=== PATIENT | male | born 1980 | race Caucasian/White ===

== ENCOUNTER 2016-10-14 17:34 | Emergency (ER) | payer BC ==
[~2016-10-14] VITALS: Ht 167.6 cm; Wt 121.8 kg
[~2016-10-14 17:34] MED LIST: MOBIC 7.5MG7.5 MG PO; NORCO 325 MG-51 TAB PO; ZESTRIL 5MG5 MG PO
[2016-10-14 17:36] VITALS: TEMP 98.7
[2016-10-14 18:20] LABS: BASO # 0.1 (0.0-0.2); BASO % 1.1 % (0.0-2.0); EOS # 0.1 (0.0-0.7); EOS % 1.2 % (0-4.0); GRAN # 6.6 (1.4-6.5); GRAN % 67.8 % (42.2-75.2); HEMOGLOBIN 14.8 g/dl (13.5-18.0); LYMPH # 2.1 (1.2-3.4); LYMPH % 21.7 % (20.0-51.0); MEAN CELL VOLUME 86 fl (80.0-100.0); MEAN CORPUSCULAR HEMOGLOBIN 30 pg (27.0-31.0); MEAN CORPUSCULAR HGB CONC 35 g/dl (33.0-37.0); MEAN PLATELET VOLUME 9.2 fl (7.4-10.4); MONO # 0.7 (0.1-0.6); MONO % 7.5 % (1.7-9.3); PLATELET COUNT 402 K/mm3 (130-400); RED BLOOD COUNT 4.87 M/mm3 (4.20-5.60); REDCELL DISTRIBUTION WIDTH-CV 12.2 % (11.5-14.5); WHITE BLOOD COUNT 9.8 K/mm3 (4.8-10.8)
[2016-10-14 18:23] LABS: PH 5 (5-8); SQUAMOUS EPITHELIAL None Seen /hpf; URINE APPEARANCE Clear; URINE BACTERIA None Seen /hpf; URINE BILIRUBIN Negative (NEGATIVE); URINE BLOOD 1+ (NEGATIVE); URINE COLOR Yellow; URINE GLUCOSE Negative (NEGATIVE); URINE KETONE Negative (NEGATIVE); URINE UROBILINOGEN Negative (NEGATIVE); URINE WBC 0-2 /hpf
[2016-10-14 18:30] LABS: ADJUSTED CALCIUM 9.1 mg/dL (8.4-10.2); ALBUMIN 4.5 gm/dL (3.5-5.0); BILIRUBIN,TOTAL 0.5 mg/dL (0.0-1.0); CALCIUM 9.5 mg/dL (8.4-10.2); CREATININE, serum 0.89 mg/dL (0.66-1.25); POTASSIUM 4.1 mmol/L (3.4-5.0); TOTAL PROTEIN 8.1 gm/dL (6.4-8.2)
[2016-10-14] MEDS ORDERED: CIPRO 500MG TA500 MG PO (19:38)
[2016-10-14] MEDS ORDERED: FLAGYL500 MG PO (19:38)
[2016-10-14] MEDS ORDERED: NORCO 325 MG-51 TAB PO (19:38)
[2016-10-14 19:47] VITALS: BP 157/99; PULSE 76
== END 2016-10-14 19:57 | disposition home or self-care (01) ==
LOC: COL.ER 17:34
PROVIDERS: Emergency Medicine
DX: K52.9 Noninfective gastroenteritis and colitis, unspecified (principal); I10 Essential (primary) hypertension
CPT/HCPCS: J2765; J3010; J7030; Q9967

== ENCOUNTER 2018-04-19 15:13 | Inpatient (IN) | payer BC ==
[2018-04-19] VITALS (12 sets, daily range): O2SAT 98–99
[~2018-04-19] VITALS: Ht 167.6 cm; Wt 111.6 kg
[~2018-04-19 15:13] MED LIST changes: +CIPRO 500MG TA500 MG PO; +FLAGYL500 MG PO
[2018-04-19 16:23] LABS: BASO # 0.1 (0.0-0.2); BASO % 1.3 % (0.0-2.0); EOS % 0.3 % (0-4.0); GRAN # 8.9 (1.4-6.5); GRAN % 81.7 % (42.2-75.2); HEMATOCRIT 44.1 % (42.0-52.0); HEMOGLOBIN 15.5 g/dl (13.5-18.0); LYMPH # 1.3 (1.2-3.4); LYMPH % 11.9 % (20.0-51.0); MEAN CELL VOLUME 86 fl (80.0-100.0); MEAN CORPUSCULAR HEMOGLOBIN 30 pg (27.0-31.0); MEAN CORPUSCULAR HGB CONC 35 g/dl (33.0-37.0); MEAN PLATELET VOLUME 8.9 fl (7.4-10.4); MONO # 0.5 (0.1-0.6); MONO % 4.2 % (1.7-9.3); PLATELET COUNT 404 K/mm3 (130-400); RED BLOOD COUNT 5.16 M/mm3 (4.20-5.60); REDCELL DISTRIBUTION WIDTH-CV 12.3 % (11.5-14.5)
[2018-04-19 16:35] LABS: ALANINE AMINOTRANSFERASE 29 U/L (21-72); ALBUMIN 4.8 gm/dL (3.5-5.0); ALKALINE PHOSPHATASE 67 U/L (50-136); ANION GAP 14 mmol/L (7-16); AST,SGOT 23 U/L (15-37); BILIRUBIN,TOTAL 0.5 mg/dL (0.0-1.0); BLOOD UREA NITROGEN 9 mg/dL (9-20); CALCIUM 9.7 mg/dL (8.4-10.2); CARBON DIOXIDE 26 mmol/L (22-30); CHLORIDE 98 mmol/L (98-107); CREATININE, serum 0.74 mg/dL (0.66-1.25); GLUCOSE 121 mg/dL (74-106); LIPASE 46 U/L (23-300); POTASSIUM 3.8 mmol/L (3.4-5.0); SODIUM 137 mmol/L (137-145); TOTAL PROTEIN 8.5 gm/dL (6.4-8.2)
[2018-04-19] MEDS ORDERED: PRILOSEC 20MG20 MG PO (21:18)
[2018-04-19] MEDS ORDERED: ZESTORETIC 25 M1 TAB PO (21:18)
[2018-04-19] MEDS ORDERED: ZOFRAN ODT4 MG PO (21:18)
[2018-04-19] MEDS ORDERED: NORCO 325 MG-51 TAB PO (21:18)
--- NOTE | 2018-04-19 23:25 | NUR ---
Pt admitted to ICU bed 3 from ED. Pt arrived via stretcher and placed on cardiac cath lab radiology technologist. Vitals stable upon arrival while on Cardene gtt. Will continue to monitor. Amberly Linton APRN, present in unit during Pt arrival.
[2018-04-19 23:47] LABS: COLLECTION METHOD CLEAN CATCH
[2018-04-19 23:53] LABS: TROPONIN-I < 0.012 ng/mL (0.000-0.034)
[2018-04-19 23:54] LABS: PH 6 (5-8); SQUAMOUS EPITHELIAL None Seen /hpf; URINE APPEARANCE Clear; URINE BACTERIA None Seen /hpf; URINE BILIRUBIN Negative (NEGATIVE); URINE BLOOD 2+ (NEGATIVE); URINE COLOR Yellow; URINE GLUCOSE Negative (NEGATIVE); URINE KETONE Negative (NEGATIVE); URINE LEUKOCYTE ESTERASE Negative (NEGATIVE); URINE NITRATE Negative (NEGATIVE); URINE PROTEIN(semi-quant) 2+ (NEGATIVE); URINE UROBILINOGEN Negative (NEGATIVE)
[2018-04-20] VITALS (844 sets, daily range): BP systolic 117–186; BP diastolic 52–102; PULSE 62–98; TEMP 97.8–99.1; O2SAT 83–100
--- NOTE | 2018-04-20 00:55 | NUR ---
Admission assessment complete at this time. Plan of care reviewed at bedside with patient. Additional time taken to address any other needs or concerns. Reports improvement on epigastric pain after dilaudid administration. Vitals stable on Cardene gtt. Will continue to monitor.
[2018-04-20 01:23] LABS: CHOLESTEROL RISK RATIO 5.5
[2018-04-20 02:06] LABS: TROPONIN-I 0.076 ng/mL (0.000-0.034)
--- NOTE | 2018-04-20 04:00 | NUR ---
Shift reassessment complete. No changes from previous assessment. Vitals stable at this time. Reports tolerable epigastric pain and declines further intervention. Will continue to monitor.
--- NOTE | 2018-04-20 07:10 | NUR ---
Bedside report given to KATINA Rodriguez.
--- NOTE | 2018-04-20 07:10 | NUR ---
Bedside report recieved from KATINA Boss.
--- NOTE | 2018-04-20 07:20 | NUR ---
Assessment complete, patient resting quietly in bed, denies needs at this time, call light within reach.
--- NOTE | 2018-04-20 08:24 | NUR ---
Cardene gtt on hold, Right FA flushed then protonix pushed slowly, then IV flushed and cardene gtt restarted.
--- NOTE | 2018-04-20 11:11 | NUR ---
dental laboratory technician apprentice in room for ECHO.
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
--- NOTE | 2018-04-20 13:19 | NUR ---
Patient reports pain in "much better."
--- NOTE | 2018-04-20 15:51 | NUR ---
Patient resting quietly on bipap, denies needs at this time, call light within reach.
--- NOTE | 2018-04-20 19:17 | NUR ---
Bedside report given to KATINA Boss.
--- NOTE | 2018-04-20 20:00 | NUR ---
Shift assessment complete at this time. Plan of care reviewed at bedside with patient. Additional time taken to address any other needs or concerns. Vitals stable at this time. Reports tolerable epigastric pain and declines further intervention at this time. Will continue to monitor.
[2018-04-21] VITALS (351 sets, daily range): BP systolic 98–128; BP diastolic 57–73; PULSE 62–67; TEMP 97.8–98.5; O2SAT 92–98
--- NOTE | 2018-04-21 | NUR ---
Pt sleeping comfortably in bed. Denies pain or any other discomfort. Vitals stable at this time. Will continue to monitor.
--- NOTE | 2018-04-21 04:00 | NUR ---
Pt sleeping comfortably in bed. Denies pain or any other discomfort. Vitals stable at this time. Will continue to monitor.
[2018-04-21 05:35] LABS: BASO # 0.1 (0.0-0.2); EOS # 0.2 (0.0-0.7); EOS % 1.1 % (0-4.0); GRAN # 9.6 (1.4-6.5); HEMATOCRIT 45.3 % (42.0-52.0); HEMOGLOBIN 15.6 g/dl (13.5-18.0); LYMPH # 2.8 (1.2-3.4); LYMPH % 19.9 % (20.0-51.0); MEAN CELL VOLUME 87 fl (80.0-100.0); MEAN CORPUSCULAR HEMOGLOBIN 30 pg (27.0-31.0); MEAN CORPUSCULAR HGB CONC 34 g/dl (33.0-37.0); MEAN PLATELET VOLUME 8.8 fl (7.4-10.4); MONO # 1.5 (0.1-0.6); MONO % 10.4 % (1.7-9.3); PLATELET COUNT 455 K/mm3 (130-400); RED BLOOD COUNT 5.21 M/mm3 (4.20-5.60); REDCELL DISTRIBUTION WIDTH-CV 12.7 % (11.5-14.5)
[2018-04-21 05:51] LABS: CALCIUM 9.7 mg/dL (8.4-10.2); CREATININE, serum 1.32 mg/dL (0.66-1.25); POTASSIUM 3.9 mmol/L (3.4-5.0)
--- NOTE | 2018-04-21 07:10 | NUR ---
BEDSIDE REPORT RECEIVED FROM KATINA GOINS. PATIENT CURRENTLY SLEEPING WITH CPAP ON. VS WNL. PLAN OF CARE DISCUSSED. CARE TAKEN OVER AT THIS TIME.
--- NOTE | 2018-04-21 07:25 | NUR ---
Bedside report given to KATINA Andrade.
--- NOTE | 2018-04-21 10:48 | NUR ---
Holding PO meds until blood pressure recheck at noon. Spoke with Dr. Ken this morning and asked about AM medications. He stated to hold AM meds until patient is more awake and up moving for the day. Rechecked patient's blood pressure at 10 AM and still somewhat low. Will continue to monitor.
[2018-04-21] MEDS ORDERED: LOPRESSOR 225 MG/TAB PO (11:42)
--- NOTE | 2018-04-21 11:46 | NUR ---
DR. WELLS ROUNDS AT THIS TIME
--- NOTE | 2018-04-21 12:21 | NUR ---
DISCHARGE ORDERS RECEIVED. WILL PROCEED WITH DISCHARGE PROCESS
--- NOTE | 2018-04-21 13:05 | NUR ---
DISCHARGE PAPERWORK REVIEWED. QUESTIONS ANSWERED. CONTACT INFORMATION TO DR. RUVALCABA'S OFFICE AND VIA [facility] GIVEN TO PATIENT SO THAT HE MAY MAKE FOLLOW UP APPTS TOMORROW. IV DISCONTINUED. NOTE FOR RETURN TO WORK GIVEN TO PATIENT, PER DR. WELLS'S RECOMMENDATIONS. PATIENT WHEELED OUT TO VEHICLE, FAMILY AT BEDSIDE DURING DISCHARGE DISCUSSION AND FAMILY TAKE'S PATIENT HOME.
== END 2018-04-21 13:10 | disposition home or self-care (01) | DRG 281 ==
LOC: COL.ER 15:13 → ICU 21:37
PROVIDERS: Nurse Practitioner; Nurse Practitioner Family; Physician Assistant; ADMIT Internal Medicine
DX: I16.1 Hypertensive emergency (principal); I21.4 Non-ST elevation (NSTEMI) myocardial infarction; Z68.41 Body mass index [BMI] 40.0-44.9, adult; E87.2 Acidosis; I10 Essential (primary) hypertension; E66.01 Morbid (severe) obesity due to excess calories; R10.13 Epigastric pain; E78.5 Hyperlipidemia, unspecified; G47.33 Obstructive sleep apnea (adult) (pediatric); Z87.891 Personal history of nicotine dependence
CPT/HCPCS: 99223-AI; 99239; C9113; G0378; J0360; J1170; J2270; J2405; J7030; J7050

== ENCOUNTER 2018-05-22 11:30 | Day surgery (SDC) | payer BC ==
[~2018-05-22] VITALS: Ht 167.7 cm; Wt 114.2 kg
[2018-05-22] VITALS (9 sets, daily range): BP systolic 128–151; BP diastolic 69–91; PULSE 71–80; TEMP 98
[~2018-05-22 11:30] MED LIST changes: +LOPRESSOR 225 MG/TAB PO; +PRILOSEC 20MG20 MG PO; +ZESTORETIC 25 M1 TAB PO; +ZOFRAN ODT4 MG PO
[2018-05-22 12:17] LABS: HEMATOCRIT 43.1 % (42.0-52.0); HEMOGLOBIN 14.8 g/dl (13.5-18.0); MEAN CELL VOLUME 88 fl (80.0-100.0); MEAN CORPUSCULAR HEMOGLOBIN 30 pg (27.0-31.0); MEAN CORPUSCULAR HGB CONC 34 g/dl (33.0-37.0); MEAN PLATELET VOLUME 9.5 fl (7.4-10.4); PLATELET COUNT 438 K/mm3 (130-400); RED BLOOD COUNT 4.91 M/mm3 (4.20-5.60); REDCELL DISTRIBUTION WIDTH-CV 12.6 % (11.5-14.5)
[2018-05-22 12:22] LABS: INR 1.1 (0.8-3.0); PROTHROMBIN TIME 12.1 SECONDS (9.7-12.8)
[2018-05-22] MEDS ORDERED: LIPITOR 40MG TA40 MG PO (12:37)
[2018-05-22] MEDS ORDERED: TOPROL XL 50MG50 MG PO (12:38)
[2018-05-22] MEDS ORDERED: ASPIRIN E.C. 8181 MG PO (12:39)
[2018-05-22] MEDS ORDERED: PRINIVIL5 MG PO (12:39)
[2018-05-22] MEDS ORDERED: PREDNISONE20 MG (12:41)
[2018-05-22 13:25] LABS: CALCIUM 9.6 mg/dL (8.4-10.2); CREATININE, serum 0.89 mg/dL (0.66-1.25); POTASSIUM 4.6 mmol/L (3.4-5.0)
== END 2018-05-22 16:30 | disposition home or self-care (01) ==
LOC: COL.CAR 11:30
PROVIDERS: Internal Medicine Cardiovascular Disease
DX: I25.10 Atherosclerotic heart disease of native coronary artery without angina pectoris (principal); I10 Essential (primary) hypertension; E78.5 Hyperlipidemia, unspecified; Z82.49 Family history of ischemic heart disease and other diseases of the circulatory system; Z82.3 Family history of stroke; Z83.3 Family history of diabetes mellitus; G47.33 Obstructive sleep apnea (adult) (pediatric); Z87.891 Personal history of nicotine dependence
CPT/HCPCS: J1200; J1644; J2250; J3010; Q9967

== ENCOUNTER 2018-06-29 16:08 | Emergency (ER) | payer BC ==
[~2018-06-29] VITALS: Ht 165.1 cm; Wt 106.4 kg
[~2018-06-29 16:08] MED LIST changes: +ASPIRIN E.C. 8181 MG PO; +LIPITOR 40MG TA40 MG PO; +PREDNISONE20 MG; +PRINIVIL5 MG PO; +TOPROL XL 50MG50 MG PO
[2018-06-29 16:13] VITALS: TEMP 99.1
[2018-06-29] MEDS ORDERED: ULTRAM 50MG TAB50 MG PO (16:53)
[2018-06-29 17:12] LABS: BASO # 0.1 (0.0-0.2); BASO % 0.9 % (0.0-2.0); EOS # 0.2 (0.0-0.7); EOS % 1.2 % (0-4.0); GRAN # 9.9 (1.4-6.5); GRAN % 73.1 % (42.2-75.2); HEMATOCRIT 37.1 % (42.0-52.0); HEMOGLOBIN 12.3 g/dl (13.5-18.0); LYMPH # 1.8 (1.2-3.4); LYMPH % 13.4 % (20.0-51.0); MEAN CELL VOLUME 88 fl (80.0-100.0); MEAN CORPUSCULAR HEMOGLOBIN 29 pg (27.0-31.0); MEAN CORPUSCULAR HGB CONC 33 g/dl (33.0-37.0); MEAN PLATELET VOLUME 8.5 fl (7.4-10.4); MONO # 1.5 (0.1-0.6); MONO % 11.1 % (1.7-9.3); PLATELET COUNT 488 K/mm3 (130-400); RED BLOOD COUNT 4.22 M/mm3 (4.20-5.60); REDCELL DISTRIBUTION WIDTH-CV 12.8 % (11.5-14.5)
[2018-06-29 17:25] LABS: ALBUMIN 4.4 gm/dL (3.5-5.0); BILIRUBIN,TOTAL 0.7 mg/dL (0.0-1.0); C-REACTIVE PROTEIN 8.4 mg/dL (0.0-0.9); CALCIUM 9.3 mg/dL (8.4-10.2); POTASSIUM 4.1 mmol/L (3.4-5.0); TOTAL PROTEIN 8.1 gm/dL (6.4-8.2); URIC ACID 6.9 mg/dL (3.5-8.5)
[2018-06-29] MEDS ORDERED: CEPHALEXIN500 M1 PO (18:27)
[2018-06-29] MEDS ORDERED: NORCO 325 MG-51 TAB PO (18:27)
[2018-06-29] MEDS ORDERED: DOXYCYCLINE 10100 MG PO (18:27)
[2018-06-29] MEDS ORDERED: WALKER MC (18:35)
[2018-06-29 18:42] VITALS: BP 110/60; PULSE 74
== END 2018-06-29 18:45 | disposition home or self-care (01) ==
LOC: COL.ER 16:08
PROVIDERS: Emergency Medicine
DX: L03.116 Cellulitis of left lower limb (principal); R60.9 Edema, unspecified; I87.2 Venous insufficiency (chronic) (peripheral); I25.10 Atherosclerotic heart disease of native coronary artery without angina pectoris; Z79.82 Long term (current) use of aspirin

== ENCOUNTER 2018-09-09 16:00 | Outpatient (RCR) | payer BC ==
[~2018-09-09 16:00] MED LIST changes: +CEPHALEXIN500 M1 PO; +DOXYCYCLINE 10100 MG PO; +ULTRAM 50MG TAB50 MG PO; +WALKER MC
== END 2018-09-15 | disposition home or self-care (01) ==
LOC: COL.CR
DX: Z48.812 Encounter for surgical aftercare following surgery on the circulatory system (principal); Z95.1 Presence of aortocoronary bypass graft; I25.118 Atherosclerotic heart disease of native coronary artery with other forms of angina pectoris

== ENCOUNTER → 2018-09-26 | Outpatient (CLI) | payer BC | LOC: ZCOL.LAB 16:13 | DX: H60.90 Unspecified otitis externa, unspecified ear (principal) ==

== ENCOUNTER → 2019-02-27 | Outpatient (CLI) | payer BC ==
[~2019-02-27] MED LIST changes: +BRILINTA90 MG PO; +COREG12.5 MG PO; +IMDUR 30MG30 MG/TAB PO; +LIPITOR 80MG80 MG PO; +MILLIPRED DP5 MG PO; +NITROSTAT0.4 MG/TAB SL; +PRINIVIL20 MG PO
== END ==
LOC: COL.RAD 16:39
DX: M76.9 Unspecified enthesopathy, lower limb, excluding foot (principal); M25.761 Osteophyte, right knee; M17.12 Unilateral primary osteoarthritis, left knee